=== PATIENT | male | born 1960 | race Caucasian/White ===

== ENCOUNTER → 2016-10-08 | Outpatient (CLI) | payer OTHER ==
[2016-10-08 17:05] LABS: URINE APPEARANCE CLEAR (CLEAR); URINE COLOR DK YELLOW; URINE EPITHELIAL CELL AUTO 20-30 /lpf (0-5); URINE NITRITE NEG (NEG); URINE SPECIFIC GRAVITY 1.021 (1.000-1.030); UROBILINOGEN POS (NEG)
[2016-10-08 17:06] LABS: MANUAL MICROSCOPIC REQUIRED? NO; REVIEW REQ? NO
[2016-10-08 17:07] LABS: URINE BILIRUBIN NEG (NEG)
[2016-10-08 17:10] LABS: HEMATOCRIT 46.3 % (42-52); MEAN CELL VOLUME 90.8 fL (80-100); MEAN CORPUSCULAR HEMOGLOBIN 31.6 pg (25-34); MEAN CORPUSCULAR HGB CONC 34.8 g/dl (32-36); WHITE BLOOD COUNT 2.83 K/uL (4.8-10.8)
[2016-10-08 17:25] LABS: ALT/SGPT 124 U/L (12-78); AST/SGOT 101 U/L (15-37); BLOOD UREA NITROGEN 18 mg/dl (7-18); BUN/CREATININE RATIO 17.8 (10-20); CALCIUM 9.2 mg/dl (8.5-10.1); CARBON DIOXIDE 30 mmol/L (21-32); CHLORIDE 103 mmol/L (98-107); GLUCOSE 117 mg/dl (70-99); SODIUM 138 mmol/L (136-145)
[2016-10-08 17:27] LABS: ALKALINE PHOSPHATASE 340 U/L (45-117)
[2016-10-08 17:34] LABS: BASO % 3.9 %; BASO ABS # 0.11 K/uL (0-0.2); COMPLETE YES; EOS % 0.4 %; IG% 0.4 %; LYMPH % 32.9 %; LYMPH ABS # 0.93 K/uL (1.2-3.4); MEAN PLATELET VOLUME 11.6 fL (7.4-10.4); MONO % 16.3 %; NEUT % 46.1 %; PLATELET COUNT 51 K/uL (130-400); PLT ESTIMATE DECREASED
[2016-10-08 17:36] LABS: LYME DISEASE AB IGG NEG (NEG); LYME DISEASE AB IGM NEG (NEG)
== END | disposition home or self-care (01) ==
LOC: C.LABBC 13:52
DX: R50.9 Fever, unspecified (principal)

== ENCOUNTER → 2016-10-10 | Outpatient (CLI) | payer OTHER ==
[2016-10-10 10:41] LABS: HEMATOCRIT 42.1 % (42-52); MEAN CELL VOLUME 92.5 fL (80-100); MEAN CORPUSCULAR HEMOGLOBIN 31.6 pg (25-34); MEAN CORPUSCULAR HGB CONC 34.2 g/dl (32-36); MEAN PLATELET VOLUME 10.5 fL (7.4-10.4); PLATELET COUNT 91 K/uL (130-400); RED BLOOD COUNT 4.55 M/uL (4.7-6.1)
[2016-10-10 11:23] LABS: ALB/GLOB RATIO 1.1 (0.9-2); ALKALINE PHOSPHATASE 295 U/L (45-117); ALT/SGPT 315 U/L (12-78); AST/SGOT 259 U/L (15-37); BLOOD UREA NITROGEN 26 mg/dl (7-18); BUN/CREATININE RATIO 27.5 (10-20); CALCIUM 8.3 mg/dl (8.5-10.1); CARBON DIOXIDE 30 mmol/L (21-32); CHLORIDE 107 mmol/L (98-107); CREATININE 0.96 mg/dl (0.60-1.40); GLUCOSE 94 mg/dl (70-99); POTASSIUM 4.4 mmol/L (3.5-5.1); SODIUM 142 mmol/L (136-145)
[2016-10-10 11:24] LABS: BASO % 1.1 %; BASO ABS # 0.06 K/uL (0-0.2); COMPLETE YES; EOS % 2.6 %; IG% 0.4 %; LYMPH % 52.3 %; LYMPH ABS # 2.77 K/uL (1.2-3.4); MONO % 11.3 %; NEUT % 32.3 %
== END | disposition home or self-care (01) ==
LOC: C.LAB 09:35
DX: R50.9 Fever, unspecified (principal)

== ENCOUNTER → 2016-10-12 | Outpatient (CLI) | payer OTHER ==
[2016-10-12 09:36] LABS: BASO % 0.3 %; BASO ABS # 0.02 K/uL (0-0.2); COMPLETE YES; HEMATOCRIT 41.8 % (42-52); IG% 1.3 %; LYMPH % 40.5 %; LYMPH ABS # 2.42 K/uL (1.2-3.4); MEAN CELL VOLUME 92.7 fL (80-100); MEAN CORPUSCULAR HEMOGLOBIN 30.4 pg (25-34); MEAN CORPUSCULAR HGB CONC 32.8 g/dl (32-36); MEAN PLATELET VOLUME 9.7 fL (7.4-10.4); MONO % 9.9 %; PLATELET COUNT 169 K/uL (130-400); RED BLOOD COUNT 4.51 M/uL (4.7-6.1); WHITE BLOOD COUNT 5.97 K/uL (4.8-10.8)
[2016-10-12 09:52] LABS: ALT/SGPT 389 U/L (12-78); AST/SGOT 233 U/L (15-37); BLOOD UREA NITROGEN 18 mg/dl (7-18); BUN/CREATININE RATIO 20.1 (10-20); CALCIUM 8.5 mg/dl (8.5-10.1); CARBON DIOXIDE 29 mmol/L (21-32); CHLORIDE 109 mmol/L (98-107); CREATININE 0.91 mg/dl (0.60-1.40); GLUCOSE 95 mg/dl (70-99); POTASSIUM 4.3 mmol/L (3.5-5.1); SODIUM 143 mmol/L (136-145)
[2016-10-12 09:55] LABS: ALB/GLOB RATIO 1.1 (0.9-2); ALKALINE PHOSPHATASE 225 U/L (45-117)
== END | disposition home or self-care (01) ==
LOC: C.LAB 08:10
DX: R50.9 Fever, unspecified (principal); R94.5 Abnormal results of liver function studies

== ENCOUNTER → 2016-10-15 | Outpatient (CLI) | payer OTHER ==
[2016-10-15 09:45] LABS: ALT/SGPT 264 U/L (12-78); AST/SGOT 67 U/L (15-37)
== END | disposition home or self-care (01) ==
LOC: C.LAB 07:56
DX: R50.9 Fever, unspecified (principal); R94.5 Abnormal results of liver function studies; R79.89 Other specified abnormal findings of blood chemistry

== ENCOUNTER → 2016-10-30 | Outpatient (CLI) | payer OTHER ==
[2016-10-30 09:38] LABS: BASO % 0.6 %; BASO ABS # 0.03 K/uL (0-0.2); COMPLETE YES; EOS % 2.6 %; HEMATOCRIT 43.9 % (42-52); IG% 0.4 %; LYMPH % 36.9 %; LYMPH ABS # 1.95 K/uL (1.2-3.4); MEAN CELL VOLUME 93.6 fL (80-100); MEAN CORPUSCULAR HGB CONC 34.2 g/dl (32-36); MEAN PLATELET VOLUME 10.3 fL (7.4-10.4); MONO % 13.2 %; NEUT % 46.3 %; PLATELET COUNT 190 K/uL (130-400); RED BLOOD COUNT 4.69 M/uL (4.7-6.1); WHITE BLOOD COUNT 5.29 K/uL (4.8-10.8)
[2016-10-30 09:54] LABS: ALT/SGPT 50 U/L (12-78); BLOOD UREA NITROGEN 16 mg/dl (7-18); BUN/CREATININE RATIO 14.2 (10-20); CARBON DIOXIDE 28 mmol/L (21-32); CHLORIDE 106 mmol/L (98-107); GLUCOSE 96 mg/dl (70-99); POTASSIUM 4.3 mmol/L (3.5-5.1); SODIUM 141 mmol/L (136-145)
[2016-10-30 09:58] LABS: ALKALINE PHOSPHATASE 94 U/L (45-117); AST/SGOT 24 U/L (15-37); CALCIUM 9.5 mg/dl (8.5-10.1)
[2016-11-01 09:06] LABS: 18KDIGG BAND NONREACTIVE (NONREACTIVE); 23KDIGG BAND NONREACTIVE (NONREACTIVE); 23KDIGM BAND REACTIVE (NONREACTIVE); 28KDIGG BAND NONREACTIVE (NONREACTIVE); 30KDIGG BAND REACTIVE (NONREACTIVE); 39KDIGG BAND NONREACTIVE (NONREACTIVE); 39KDIGM BAND NONREACTIVE (NONREACTIVE); 41KDIGG BAND REACTIVE (NONREACTIVE); 41KDIGM BAND REACTIVE (NONREACTIVE); 45KDIGG BAND NONREACTIVE (NONREACTIVE); 58KDIGG BAND NONREACTIVE (NONREACTIVE); 66KDIGG BAND NONREACTIVE (NONREACTIVE); 93KDIGG BAND NONREACTIVE (NONREACTIVE)
== END | disposition home or self-care (01) ==
LOC: C.LAB 08:13
PROVIDERS: ATTEND Family Medicine
DX: A69.20 Lyme disease, unspecified (principal)

== ENCOUNTER → 2017-02-07 | Outpatient (CLI) | payer OTHER ==
[2017-02-07 08:31] LABS: BASO % 0.5 %; BASO ABS # 0.03 K/uL (0-0.2); COMPLETE YES; EOS % 3.5 %; HEMATOCRIT 45.9 % (42-52); IG% 0.2 %; LYMPH ABS # 1.44 K/uL (1.2-3.4); MEAN CORPUSCULAR HEMOGLOBIN 32.1 pg (25-34); MEAN CORPUSCULAR HGB CONC 34.9 g/dl (32-36); MEAN PLATELET VOLUME 10.2 fL (7.4-10.4); MONO % 8.5 %; NEUT % 65.3 %; PLATELET COUNT 216 K/uL (130-400); RED BLOOD COUNT 4.99 M/uL (4.7-6.1); WHITE BLOOD COUNT 6.56 K/uL (4.8-10.8)
[2017-02-07 08:51] LABS: ALT/SGPT 36 U/L (12-78); BLOOD UREA NITROGEN 19 mg/dl (7-18); BUN/CREATININE RATIO 19.7 (10-20); CALCIUM 9.5 mg/dl (8.5-10.1); CARBON DIOXIDE 28 mmol/L (21-32); CHLORIDE 107 mmol/L (98-107); CREATININE 0.97 mg/dl (0.60-1.40); GLUCOSE 133 mg/dl (70-99); SODIUM 140 mmol/L (136-145)
[2017-02-07 08:54] LABS: ALB/GLOB RATIO 1.1 (0.9-2); ALKALINE PHOSPHATASE 84 U/L (45-117); AST/SGOT 20 U/L (15-37)
[2017-02-07 08:56] LABS: PFT COL EPI 125 SECONDS (80-184)
[2017-02-07 09:12] LABS: PARTIAL THROMBOPLASTIN RATIO 1.1; PROTHROMBIN TIME (PATIENT) 10.2 SECONDS (9.0-12.0)
== END | disposition home or self-care (01) ==
LOC: C.LAB 08:08
PROVIDERS: ATTEND Family Medicine
DX: R23.3 Spontaneous ecchymoses (principal)

== ENCOUNTER → 2017-06-10 | Outpatient (CLI) | payer OTHER ==
--- NOTE | 2017-06-10 13:55 | EXERCISE STRESS ECHO ---
*NOTICE TO RECEIVING DEMOCRAT AGENCY This information is strictly Confidential and protected under [place] law. [place] law prohibits you from making any further disclosure of this information unless further disclosure is expressly permitted by the written consent of the person to whom it pertains or is authorized by law. A general authorization for the release of medical or other information is not sufficient for this purpose. Hospital accepts no responsibility if the information is made available to any other person, INCLUDING THE PATIENT. Interpretation Summary * Name: DEBORAH ACHARYA Study Date: 06/10/2017 09:24 AM BP: 146/95 mmHg * Patient Location: [facility] HR: 81 * : 1960 (M/d/yyyy) Gender: Male Height: 70 in * Age: 56 yrs Ethnicity: CA Weight: 220 lb * Ordering Physician: Fabian Milton * Referring Physician: Fabian Milton D.O. * Performed By: Janice Marrero RCS * * Reason For Study: Chest Pain * BSA: 2.2 m2 * The exercise echocardiographic examination is normal without resting left ventricular wall motion abnormalities or inducible ischemia. * Exercise capacity is above average. * -- Conclusions -- * The patient exhibited a hypertensive response with stress. * The stress ECG response was normal * Resting wall motion: Normal. Stress wall motion: Appropriate increase in Left ventricular systolic function and decrease in cavity size. No stress induced segmental wall motion abnormalities. * There is borderline concentric left ventricular hypertrophy. * Ejection Fraction = 60-65%. * The mitral valve leaflets are mildly thickened with mild prolapse of the posterior mitral valvel lealflet. * There is mild mitral regurgitation. * Trace aortic regurgitation. Procedure Details * ECHOEX, CPT #[id number] * ECHO COLOR FLOW, CPT #[id number] * ECHO DOPPLER, CPT #[id number] Left Ventricle * The left ventricle is normal in size. * There is borderline concentric left ventricular hypertrophy. * Ejection Fraction = 60-65%. * Left ventricular systolic function is normal. * The left ventricular wall motion is normal at rest. * The left ventricular ejection fraction increases normally with stress. The left ventricular end-systolic cavity size reduces post-stress (normal response). The left ventricular wall motion with stress is normal. * Resting wall motion: Normal. Stress wall motion: Appropriate increase in Left ventricular systolic function and decrease in cavity size. No stress induced segmental wall motion abnormalities. Right Ventricle * The right ventricle is normal in size and function. Atria * The left atrial size is normal. * Right atrial size is normal. * No ASD detected; PFO is not assessed. Mitral Valve * The mitral valve leaflets are mildly thickened with mild prolapse of the posterior mitral valvel lealflet. * There is no mitral valve stenosis. * The mitral regurgitant jet is anteriorly directed, which is consistent with posterior leaflet pathology. * There is mild mitral regurgitation. Tricuspid Valve * The tricuspid valve is normal. * There is no tricuspid stenosis. * Significant tricuspid regurgitation is absent. Aortic Valve * The aortic valve is trileaflet. * Aortic stenosis is absent. * Trace aortic regurgitation. Pulmonic Valve * The pulmonary valve is not well seen, but the Doppler examination is normal without significant regurgitation or stenosis. Great Vessels * The aortic root and proximal ascending aorta are normal sized. Pericardium * There is no pericardial effusion. Stress Parameters * Normal baseline electrocardiogram. * The stress ECG response was normal * The stress portion of this study was personally supervised by the undersigned interpreting physician. * Rest heart rate was '81' BPM. * Rest blood pressure was '146/95' * Maximum heart rate achieved was 181 bpm. * Maximum heart rate was 110 % of maximum age-predicted heart rate. * Maximum blood pressure was '202/83' * Total exercise time was '8:59' * Maximum exercise MET level achieved was '10.4' METS * Maximum treadmill speed was '3.4' miles per hour. * Maximum treadmill elevation was '14'% grade. * Exercise was terminated due to 'achieving target heart rate' * The patient exhibited a hypertensive response with stress. MMode 2D Measurements and Calculations IVSd 1.0 cm IVSs 1.4 cm LVIDd 4.5 cm LVIDs 3.0 cm LVPWd 1.0 cm LVPWs 1.2 cm IVS/LVPW 1.0 FS 33.5 % EDV(Teich) 91.2 ml ESV(Teich) 34.4 ml EF(Teich) 62.3 % EDV(cubed) 89.6 ml ESV(cubed) 26.4 ml EF(cubed) 70.5 % % IVS thick 32.1 % % LVPW thick 15.7 % LV mass(C)d 158.0 grams LV mass(C)dI 72.7 grams/m\S\2 LV mass(C)s 119.1 grams LV mass(C)sI 54.8 grams/m\S\2 SV(Teich) 56.8 ml SI(Teich) 26.2 ml/m\S\2 SV(cubed) 63.2 ml SI(cubed) 29.1 ml/m\S\2 Ao root diam 4.1 cm Ao root area 13.0 cm\S\2 ACS 1.9 cm LA dimension 4.7 cm asc Aorta Diam 3.6 cm LA/Ao 1.1 EDV(MOD-sp4) 95.0 ml ESV(MOD-sp4) 33.0 ml EF(MOD-sp4) 65.3 % LVAd ap2 35.7 cm\S\2 LVLd ap2 8.9 cm EDV(MOD-sp2) 117.9 ml EDV(sp2-el) 121.4 ml LVAs ap2 18.3 cm\S\2 LVLs ap2 7.3 cm ESV(MOD-sp2) 40.2 ml ESV(sp2-el) 39.1 ml EF(MOD-sp2) 65.9 % EF(sp2-el) 67.8 % SV(MOD-sp4) 62.0 ml SI(MOD-sp4) 28.5 ml/m\S\2 SV(MOD-sp2) 77.8 ml SI(MOD-sp2) 35.8 ml/m\S\2 SV(sp2-el) 82.3 ml SI(sp2-el) 37.9 ml/m\S\2 Doppler Measurements and Calculations MV E max kira 88.4 cm/sec MV A max kira 58.2 cm/sec MV E/A 1.5 MV P1/2t max kira 91.6 cm/sec MV P1/2t 69.9 msec MVA(P1/2t) 3.1 cm\S\2 MV dec slope 383.7 cm/sec\S\2 MV dec time 0.21 sec Ao V2 max 101.2 cm/sec Ao max PG 4.1 mmHg Ao max PG (full) 1.2 mmHg AI max kira 440.9 cm/sec AI max PG 77.8 mmHg AI dec slope 218.3 cm/sec\S\2 AI P1/2t 591.8 msec LV V1 max PG 2.9 mmHg LV V1 max 84.5 cm/sec PA V2 max 81.1 cm/sec PA max PG 2.6 mmHg PI max kira 177.7 cm/sec PI max PG 12.6 mmHg PI dec slope 295.1 cm/sec\S\2 PI P1/2t 176.4 msec TR max kira 229.5 cm/sec
== END | disposition home or self-care (01) ==
LOC: C.CPL 09:42
PROVIDERS: ATTEND Specialist
DX: R07.9 Chest pain, unspecified (principal); Z86.73 Personal history of transient ischemic attack (TIA), and cerebral infarction without residual deficits

== ENCOUNTER → 2017-07-30 | Outpatient (CLI) | payer OTHER ==
[2017-07-30 09:59] LABS: ALBUMIN 3.9 gm/dl (3.4-5.0); ALKALINE PHOSPHATASE 79 U/L (45-117); AST/SGOT 15 U/L (15-37); BLOOD UREA NITROGEN 18 mg/dl (7-18); CALCIUM 9.1 mg/dl (8.5-10.1); CARBON DIOXIDE 26 mmol/L (21-32); CREATININE 0.96 mg/dl (0.60-1.40); GLUCOSE 105 mg/dl (70-99); POTASSIUM 3.7 mmol/L (3.5-5.1); SODIUM 138 mmol/L (136-145); TOTAL PROTEIN 7.2 gm/dl (6.4-8.2)
[2017-07-30 10:00] LABS: ALT/SGPT 34 U/L (12-78)
== END | disposition home or self-care (01) ==
LOC: C.LAB 07:18
PROVIDERS: ATTEND Specialist
DX: I05.9 Rheumatic mitral valve disease, unspecified (principal); Z86.73 Personal history of transient ischemic attack (TIA), and cerebral infarction without residual deficits

== ENCOUNTER → 2017-08-09 | Day surgery (SDC) | payer OTHER ==
[~2017-08-09] VITALS: Ht 177.8 cm; Wt 100.0 kg
[2017-08-09] VITALS (11 sets, daily range): BP systolic 94–128; BP diastolic 61–84; PULSE 62–65; TEMP 36.3; O2SAT 96–98; Ht 177.8 cm; Wt 100.0 kg
[~2017-08-09] MED LIST: ASPI81TA25 PO; LIDOCAINE HCL 2% 2 ML VIAL (20MG/ML) ONE; MIDAZOLAM HCL 1 MG/ML 2ML VIAL ONE; PROPOFOL IV EMULSION 10 MG/ML 20 ML VIAL IV ONE
--- NOTE | 2017-08-09 07:15 | History & Physical Bridge Note ---
H&P Re-Evaluation Bridge Note: I have examined the patient, reviewed the History & Physical and in the interval since the performance of the History & Physical I have noted the following changes of clinical significance: No changes noted
--- NOTE | 2017-08-09 08:57 | Cardiology Procedure Brief Nt ---
Preliminary Cardiology Note Procedure Date Aug 09, 2017. 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 Recommendations Continue aspirin 81 mg daily. Continue follow up with yearly TTecho studies or closer if there is development of symptoms related to MR. Specimens none Anesthesia Administered by anesthesia, Versed 2 mg IV, Propofol 100 mg IV Complication(s) None Disposition Recovery in post slab inspector recovery area , then DC to home
--- NOTE | 2017-08-09 09:05 | Discharge Instructions ---
Discharge Instructions Procedure Procedure Date: Aug 09, 2017. Reason for Visit: Atypical Chest Pain *Dr Milton Doing* Anesthesia. Discharge Discharge Date: Aug 09, 2017. Discharge Diagnosis: Mild mitral valve prolapse, mild mitral regurgitation Last Recorded Wt (Kilograms): 100 Anesthesia Post Anesthesia Instructions: If you have had General Anesthesia or IV Sedation: * Do not drive today. * Resume driving when surgeon permits. * Do not make important decisions or sign legal documents today. * Call surgeon for: 1. Temperature elevations greater than 101 degrees F. 2. Uncontrollable pain. 3. Excessive bleeding. 4. Persistent nausea and vomiting. 5. Medication intolerance (nausea, vomiting or rash). * For nausea and vomiting use only clear liquids such as: tea, soda, bouillon until nausea subsides, then gradually increase diet as tolerated. * If you have any concerns or questions, call your surgeon's office. If physician is unavailable and it is an emergency, call 911 or go to the nearest emergency room. Instructions Activity Recommendations: limitations as noted below Recommended Home Diet: resume previous diet Allergies: Coded Allergies: No Known Allergies (Verified , 03/05/16) Provider Instructions ACTIVITY RECOMMENDATIONS: Resume activities as tolerated with no limitations unless specified. _x_ No lifting over 10__ pounds for 24 hours. _x_ Do not engage in vigorous exercise, sexual activity, or sports for 24 hours. _x_ Do not drive or operate any motorized equipment for 24 hours. _x_ You may return to work/school tomorrow. _x_ Nothing to eat or drink until gag reflex returns. _x_ No HOT or WARM liquids for _24_ hours. _x_ Avoid "scratchy" foods such as potato chips or pretzels for 24 hours following procedure. SPECIAL CARE: If you experience coughing up or vomiting of blood, contact _Dr Milton __ Follow Up Annabel Venegas Recommendations: Call your doctor if: * Temperature above 101 degrees * Pain not relieved by pain medicine ordered * There is increased drainage or redness from any incision * You have any unanswered questions or concerns. Your Doctors Instructions noted above were prepared by provider Fabian Milton. Patient Signature Section: Patient Instructions Signature Page Mario Nails Patient (or Guardian) Signature/Date: I have read and understand the instructions given to me by my caregivers. Caregiver/RN/Doctor Signature/Date: The above-named patient and/or guardian has received patient instructions on this date. + Original Patient Signature Page (only) stays with chart. Please make copy for patient.
--- NOTE | 2017-08-09 09:36 | Anesthesiology Progress Note ---
Anesthesia Post Op Note Date & Time Aug 09, 2017 at 09:36 Vital Signs Pain Intensity: 0 Vital Signs Past 12 Hours Date Time Temp Pulse Resp B/P (MAP) Pulse Ox O2 Delivery O2 Flow Rate FiO2 08/09/17 09:30 65 16 123/75 (91) 96 Room Air 08/09/17 09:15 64 16 120/72 (88) 98 Room Air 08/09/17 09:00 63 16 118/68 (85) 98 Room Air 08/09/17 08:45 64 16 122/68 (86) 98 Room Air 08/09/17 08:30 65 16 124/70 (88) 98 Room Air 08/09/17 08:27 62 16 113/78 (90) 98 Room Air 08/09/17 08:17 64 16 122/64 (83) 98 Room Air 08/09/17 08:07 16 107/65 98 Nasal Cannula 4 08/09/17 08:05 16 107/65 98 Nasal Cannula 4 08/09/17 08:00 16 109/73 98 Nasal Cannula 4 08/09/17 07:55 16 109/61 98 Nasal Cannula 4 08/09/17 07:50 16 104/64 98 Nasal Cannula 4 08/09/17 07:45 16 94/66 96 Nasal Cannula 4 08/09/17 07:40 16 128/84 96 Nasal Cannula 4 08/09/17 07:38 16 128/84 96 Nasal Cannula 4 08/09/17 06:54 36.3 62 16 122/72 (89) 96 Room Air Notes Mental Status: alert / awake / arousable, participated in evaluation Pt Amnestic to Procedure: Yes Nausea / Vomiting: adequately controlled Pain: adequately controlled Airway Patency, RR, SpO2: stable & adequate BP & HR: stable & adequate Hydration State: stable & adequate Anesthetic Complications: no major complications apparent
--- NOTE | 2017-08-09 18:51 | TEE ---
*NOTICE TO RECEIVING DEMOCRAT AGENCY This information is strictly Confidential and protected under [place] law. [place] law prohibits you from making any further disclosure of this information unless further disclosure is expressly permitted by the written consent of the person to whom it pertains or is authorized by law. A general authorization for the release of medical or other information is not sufficient for this purpose. Hospital accepts no responsibility if the information is made available to any other person, INCLUDING THE PATIENT. Interpretation Summary * Name: DEBORAH ACHARYA Study Date: 08/09/2017 07:19 AM BP: 122/72 mmHg * Patient Location: [facility] HR: 77 * : 1960 (M/d/yyyy) Gender: Male Height: 70 in * Age: 56 yrs Ethnicity: [place] Weight: 220 lb * Ordering Physician: Fabian Milton DO, FACC * Referring Physician: Fabian Milton DO, FACC * Performed By: Rachel Cain RDCS * * Reason For Study: Atypical chest pain * BSA: 2.2 m2 * -- Conclusions -- * The study was of technically good quality and was adequate for the referring indication. * There is a mobile, linear echodensity on the left atrial aspect of the mitral valve with appearance consistent with a ruptured chord from the sub-mitral valve apparatus of the posterior mitral valve leaflet. * There is mild resultant prolapse of the P2 segment of the posterior mitral valve. * There is mild mitral regurgitation. * The mitral regurgitant jet is anteriorly directed, which is consistent with posterior leaflet pathology. * Trace aortic valve regurgitation is present. * The LV ejection fraction=60-65% Procedure Details * The transesophageal portion of this study was personally supervised by the undersigned interpreting physician. * The study was performed in Cardiac Catheterization Lab. * Time out was conducted by the physician, nurse, and senior laboratory technician with positive identification of patient and procedure. * Informed consent for Transesophageal Echocardiogram was obtained prior to the procedure. * An intravenous line was placed. A topical anesthetic agent was used for oropharangeal anesthesia. A bite block was inserted. * Sedation performed by the anesthesia department. * The patient's vital signs, including blood pressure, heart rate, pulse oximetry and cardiac rhythm were monitored throughout the procedure . * Midazolam 2 mg administered for sedation. * The posterior oropharynx was anesthetized using a topical anesthetic spray. A bite guard was inserted. * A multifrequency, multiplane transesopheageal echocardiographic endoscope was inserted and manipulated in the standard fashion to achieve multiplane views. * The transesophageal probe was passed without difficulty. * The usual views were obtained; basal, mid-esophageal, transgastric and aortic views. * The patient tolerated the procedure well without evidence of orophangeal or esophageal trauma. * Contrast injection with agitated saline was performed. * Start time 0738 End time 0803 Probe #3 utilized for procedure. 100 mg Propofol 40 mg Lidocaine Left Ventricle * The left ventricle is normal in size. * There is normal left ventricular wall thickness. * Left ventricular systolic function is normal. * Ejection Fraction = 60-65%. * The left ventricular wall motion is normal. Right Ventricle * The right ventricle is normal in size and function. Atria * The left atrial size is normal. * No left atrial mass or thrombus visualized. * No thrombus is detected in the left atrial appendage. * Right atrial size is normal. * The interatrial septum is intact with no evidence for an atrial septal defect. Mitral Valve * There is a mobile, linear echodensity on the left atrial aspect of the mitral valve with appearance consistent with a ruptured chord from the sub-mitral valve apparatus of the posterior mitral valve leaflet. There is mild resultant prolapse of the P2 segment of the posterior mitral valve. * There is no mitral valve stenosis. * There is mild mitral regurgitation. * The mitral regurgitant jet is anteriorly directed, which is consistent with posterior leaflet pathology. Tricuspid Valve * The tricuspid valve is normal. * There is no tricuspid stenosis. * There is trace tricuspid regurgitation. * Doppler findings do not suggest pulmonary hypertension. Aortic Valve * The aortic valve is trileaflet. * No hemodynamically significant valvular aortic stenosis. * Trace aortic regurgitation. Pulmonic Valve * The pulmonic valve is not well seen, but is grossly normal. Great Vessels * There is no significant atheromatous disease visualized in the aortic root, proximal ascending aorta, aortic arch or proximal descending thoracic aorta. The aortic root was borderline dilated with diameter 3.8 cm. Pericardium * There is no pericardial effusion. MMode 2D Measurements and Calculations Ao root diam 3.8 cm Ao root area 11.3 cm\S\2
== END | disposition home or self-care (01) ==
LOC: C.CATH 06:38
PROVIDERS: ATTEND Specialist
DX: I51.1 Rupture of chordae tendineae, not elsewhere classified (principal); I34.0 Nonrheumatic mitral (valve) insufficiency; I10 Essential (primary) hypertension; Z86.73 Personal history of transient ischemic attack (TIA), and cerebral infarction without residual deficits; Z79.899 Other long term (current) drug therapy; Z79.82 Long term (current) use of aspirin

== ENCOUNTER 2021-03-18 22:41 | Inpatient (IN) ==
[2021-03-18] MEDS ORDERED: SODIUM CHLORIDE 0.9% 1000ML 500 ML IV ONE (23:02)
[2021-03-18] MEDS ORDERED: METOPROLOL TARTRATE 1 MG/ML VIAL IV STA ×2 (23:02→23:31)
--- NOTE | 2021-03-18 23:10 | Emergency Department Note ---
Impression & Plan SVT (supraventricular tachycardia), Palpitations, Atrial fibrillation, Chest pressure ED Provider Note NAME: DEBORAH ACHARYA AGE: 60 SEX: M : 1960 ARRIVES VIA: Walk-In INFORMANT: [Patient] ED PROVIDER(S): [Jose Daniel Almodovar MD] CHIEF COMPLAINT: Palpitations HISTORY OF PRESENT ILLNESS: The patient is a 60-year-old male with a history of SVT with ablation. He was told that he was having some extra beats and may be even some trigeminy for the last couple of weeks. He was told to come to the hospital if he ever developed a faster heart rate. In the last 4 hours, the patient has noticed his heart racing at times. He has had some mild pressure in his chest. No real shortness of breath. If he bears down, the heart rate seems to decrease and break to a slower rhythm. The patient was outside today doing some mild work, no difficulty with chest pain or shortness of breath while working. He has had no cough, cold or congestion. He has been in baseline health. He took a Xanax before coming in thinking this may help relieve his symptoms. He is currently on no rate limiting medications. No prior diagnosis of A. fib or a flutter. REVIEW OF SYSTEMS: See HPI for pertinent positives and negatives. A total of ten systems were reviewed and were otherwise negative. PMHx/PSHx: See Below SOCIAL HISTORY: See Below. PHYSICAL EXAM: GENERAL: Patient is in no acute distress. HEENT: No acute trauma, normocephalic atraumatic, mucous membranes moist, no nasal congestion, no scleral icterus. NECK: No stridor, no adenopathy, no meningismus, trachea is midline. LUNGS: Clear to auscultation bilaterally, no wheeze, no rhonchi, breath sounds equal. HEART: No murmurs, irregular rhythm, mildly tachycardic. ABDOMEN: Soft, nontender, bowel sounds positive, no hernias, no peritonitis. EXTREMITIES: No cyanosis or edema, full range of motion of all the joints without pain or difficulty, no signs for acute trauma. NEUROLOGIC: Oriented x 3, no acute motor or sensory deficits, no focal weakness. SKIN: No rash, no jaundice, no diaphoresis. DIFFERENTIAL DIAGNOSIS: Cardiac ischemia, aortic dissection, pulmonary embolism, SVT, atrial fibrillation, a flutter, V. tach, pneumothorax, pneumonia, pericarditis, myocarditis, esophageal rupture, GERD, cholecystitis, pancreatitis, musculoskeletal, as well as other pathologies. EMERGENCY DEPARTMENT COURSE/PROCEDURES: ECG: Indication was palpitations. The ECG shows what appears to be atrial fibrillation with some occasional sinus beats. He appears to have runs of atrial fibrillation. The rate is 101. The QTc is 453. There is some nonsp ecific ST change. No ST elevation. PVCs. Compared to an ECG from 18 November 2015, A. fib is now present. Repeat EKG: Indication was tachycardia. The ECG shows an SVT with a rate of 165. There is some diffuse nonspecific ST change. No ST elevation, no PVCs. QTC is 463. Compared to the earlier ECG from today, the SVT is now present. Continuous Cardiac Monitoring: An order was placed for continuous cardiac monitoring. The monitor shows a rate of 115 with atrial fibrillation. Critical Care Note: I have personally spent 55 minutes of critical care time in the direct management of this patient. This includes bedside care, interpretation of diagnostic studies, and testing, discussion with consultants, patient, and family members, and other required patient management activities. This 55 minutes is in excess of all separately billable procedures. MEDICAL DECISION MAKING: There is no leukocytosis or concerning anemia. There is a normal platelet count. No coagulopathy. No significant electrolyte abnormality or kidney failure. No concerning liver enzyme elevation. The patient appeared to be in a euthyroid state. ECG initially showed some intermittent atrial fibrillation. A second EKG showed an SVT. At times on the bus monitor, he was in a sinus rhythm with frequent PACs. Covid testing is currently pending. Chest film did not show pneumonia or CHF. The patient was given IV saline, 1 L. He received a total of 15 mg of IV Lopressor. He was given 25 mg of oral Lopressor. He was eventually placed on a heparin drip. I did speak with cardiology. They did recommend a heparin drip and beta- blockade. The patient is being hospitalized. I spoke with the patient, I talked to case management. The on-call hospitalist was consulted. I was called by the nursing staff because of the rapid heart rate. The patient was in SVT. His blood pressure was low and he was slightly sweaty. He was able to break the SVT on his own by just bearing down. Once the SVT resolved, his blood pressure improved. Past Med/Surg History Medical History Supraventricular tachycardia Social History Smoking Status: Never smoker Preferred Language: Hong Konger Feels Safe at Home: Yes Allergies Allergies Allergy/AdvReac Type Severity Reaction Status Date / Time No Known Allergies Allergy Unknown Verified 03/19/21 00:21 Home Meds Home Medications Medication Instructions Recorded Confirmed alprazolam 0.5 mg tablet 0.5 mg PO DAILY PRN 03/19/21 03/19/21 Results & Data (ED) Vital Signs Vital Signs - 24 hr 03/18/21 22:42 03/18/21 23:05 03/18/21 23:06 Temperature 36.6 C Temperature Source Temporal Artery Scan Pulse Rate 100 H Pulse Rate [Apical] Pulse Rate from SpO2 Sensor Respiratory Rate 20 Blood Pressure 138/82 Blood Pressure [Left Arm] Blood Pressure Mean 100 Blood Pressure Mean [Left Arm] Blood Pressure Position Sitting Pulse Oximetry 97 98 Oxygen Delivery Method Room Air Room Air Room Air Sepsis Recent Fever Within 48 Hours No Sepsis New/Unexplained Change in Mental Status N/A Sepsis Action Taken by Nursing No Action Required 03/18/21 23:13 03/18/21 23:31 03/18/21 23:35 Temperature Temperature Source Pulse Rate 94 H 124 H Pulse Rate [Apical] 118 H Pulse Rate from SpO2 Sensor Respiratory Rate 18 Blood Pressure 130/76 126/78 Blood Pressure [Left Arm] 126/78 Blood Pressure Mean Blood Pressure Mean [Left Arm] 94 Blood Pressure Position Pulse Oximetry 98 Oxygen Delivery Method Sepsis Recent Fever Within 48 Hours Sepsis New/Unexplained Change in Mental Status Sepsis Action Taken by Nursing 03/19/21 00:01 03/19/21 00:30 03/19/21 00:38 Temperature Temperature Source Pulse Rate 95 H 105 H Pulse Rate [Apical] 178 H Pulse Rate from SpO2 Sensor 67 87 Respiratory Rate 17 15 Blood Pressure 142/75 H Blood Pressure [Left Arm] Blood Pressure Mean 97 Blood Pressure Mean [Left Arm] Blood Pressure Position Pulse Oximetry 96 97 Oxygen Delivery Method Sepsis Recent Fever Within 48 Hours Sepsis New/Unexplained Change in Mental Status Sepsis Action Taken by Nursing 03/19/21 00:44 03/19/21 00:53 Temperature Temperature Source Pulse Rate 98 H Pulse Rate [Apical] 88 Pulse Rate from SpO2 Sensor Respiratory Rate 16 Blood Pressure 129/75 Blood Pressure [Left Arm] 129/75 Blood Pressure Mean Blood Pressure Mean [Left Arm] 93 Blood Pressure Position Pulse Oximetry 98 Oxygen Delivery Method Room Air Sepsis Recent Fever Within 48 Hours Sepsis New/Unexplained Change in Mental Status Sepsis Action Taken by [facility] Medications Current Medication List: was personally reviewed by me Laboratory Data Attestation: I reviewed the patient's lab results. Result diagrams: 03/18/21 23:00 03/18/21 23:00 Lab Results 03/18/21 03/18/21 03/18/21 Range/Units 23:00 23:00 23:00 WBC 8.30 (4.8-10.8) K/uL RBC 4.65 L (4.7-6.1) M/uL Hgb 14.9 (14.0-18.0) g/dL Hct 43.6 (42-52) % MCV 93.8 (80-100) fL MCH 32.0 (25-34) pg MCHC 34.2 (32-36) g/dL RDW Std Deviation 46.3 (36.4-46.3) fL RDW Coeff of Martha 13.6 (11.5-14.5) % Plt Count 246 (130-400) K/uL MPV 10.2 (7.4-10.4) fL Immature Gran % (Auto) 0.2 % Neut % (Auto) 60.6 % Lymph % (Auto) 25.5 % [place] % (Auto) 9.2 % Eos % (Auto) 4.0 % Baso % (Auto) 0.5 % Neut # (Auto) 5.03 (1.4-6.5) K/uL Lymph # (Auto) 2.12 (1.2-3.4) K/uL [place] # (Auto) 0.76 H (0.11-0.59) K/uL Eos # (Auto) 0.33 (0-0.5) K/uL Baso # (Auto) 0.04 (0-0.2) K/uL Immature Gran # (Auto) 0.02 (0.00-0.02) K/uL PT 9.8 (9.0-12.0) Seconds INR 1.0 (0.9-1.1) APTT 26.8 (21.0-31.0) Seconds PTT Ratio 1.0 Sodium 143 (136-145) mmol/L Potassium 3.8 (3.5-5.1) mmol/L Chloride 110 H (98-107) mmol/L Carbon Dioxide 27 (21-32) mmol/L Anion Gap 6.0 (3-11) BUN 28 H (7-18) mg/dl Creatinine 1.20 (0.6-1.4) mg/dl Est Cr Clr Drug Dosing 79.2 ml/min Est GFR ( Amer) 75.7 ml/min Est GFR (Non-Af Amer) 65.3 ml/min BUN/Creatinine Ratio 22.9 H (10-20) Glucose 91 (70-99) mg/dl Calcium 9.0 (8.5-10.1) mg/dl Magnesium 2.0 (1.8-2.4) mg/dl Total Bilirubin 0.3 (0.2-1) mg/dl AST 20 (15-37) U/L ALT 30 (12-78) U/L Alkaline Phosphatase 96 (45-117) U/L Troponin I < 0.015 (0-0.045) ng/ml Total Protein 7.3 (6.4-8.2) gm/dl Albumin 3.6 (3.4-5.0) gm/dl Globulin 3.7 (2.5-4.0) gm/dl Albumin/Globulin Ratio 1.0 (0.9-2) TSH 3.280 (0.300-4.500) uIu/ml COVID-19 Eval Order 03/19/21 Range/Units 00:17 WBC (4.8-10.8) K/uL RBC (4.7-6.1) M/uL Hgb (14.0-18.0) g/dL Hct (42-52) % MCV (80-100) fL MCH (25-34) pg MCHC (32-36) g/dL RDW Std Deviation (36.4-46.3) fL RDW Coeff of Martha (11.5-14.5) % Plt Count (130-400) K/uL MPV (7.4-10.4) fL Immature Gran % (Auto) % Neut % (Auto) % Lymph % (Auto) % [place] % (Auto) % Eos % (Auto) % Baso % (Auto) % Neut # (Auto) (1.4-6.5) K/uL Lymph # (Auto) (1.2-3.4) K/uL [place] # (Auto) (0.11-0.59) K/uL Eos # (Auto) (0-0.5) K/uL Baso # (Auto) (0-0.2) K/uL Immature Gran # (Auto) (0.00-0.02) K/uL PT (9.0-12.0) Seconds INR (0.9-1.1) APTT (21.0-31.0) Seconds PTT Ratio Sodium (136-145) mmol/L Potassium (3.5-5.1) mmol/L Chloride (98-107) mmol/L Carbon Dioxide (21-32) mmol/L Anion Gap (3-11) BUN (7-18) mg/dl Creatinine (0.6-1.4) mg/dl Est Cr Clr Drug Dosing ml/min Est GFR ( Amer) ml/min Est GFR (Non-Af Amer) ml/min BUN/Creatinine Ratio (10-20) Glucose (70-99) mg/dl Calcium (8.5-10.1) mg/dl Magnesium (1.8-2.4) mg/dl Total Bilirubin (0.2-1) mg/dl AST (15-37) U/L ALT (12-78) U/L Alkaline Phosphatase (45-117) U/L Troponin I (0-0.045) ng/ml Total Protein (6.4-8.2) gm/dl Albumin (3.4-5.0) gm/dl Globulin (2.5-4.0) gm/dl Albumin/Globulin Ratio (0.9-2) TSH (0.300-4.500) uIu/ml COVID-19 Eval Order Covid19 at [facility] Administered Medications Discontinued Medications Sodium Chloride (Nss 1000ml) 500 mls @ 999 mls/hr IV .Q31M ONE Stop: 03/18/21 23:32 Last Admin: 03/18/21 23:14 Dose: 999 mls/hr Documented by: [id number] Sodium Chloride (Nss 1000ml) 500 mls @ 999 mls/hr IV .Q31M ONE Stop: 03/19/21 01:09 Last Admin: 03/19/21 00:42 Dose: 999 mls/hr Documented by: [id number] Metoprolol Tartrate (Metoprolol Tartrate 1 Mg/Ml Vial) 5 mg IV NOW STA Stop: 03/18/21 23:03 Last Admin: 03/18/21 23:13 Dose: 5 mg Documented by: [id number] Metoprolol Tartrate (Metoprolol Tartrate 1 Mg/Ml Vial) 5 mg IV NOW STA Stop: 03/18/21 23:32 Last Admin: 03/18/21 23:35 Dose: 5 mg Documented by: [id number] Metoprolol Tartrate (Metoprolol Tartrate 1 Mg/Ml Vial) 5 mg IV NOW STA Stop: 03/19/21 00:40 Last Admin: 03/19/21 00:53 Dose: 5 mg Documented by: [id number] Imaging Data Attestation: I personally reviewed and interpreted this imaging study as follows: My Impression: Chest x-ray: There is no pneumonia, mediastinal widening or pneumothorax. The chest film looks similar to previous films. Discharge Plan Visit Data Chief Complaint: Arrhythmia/Palpitations Stated Complaint: TACHYCARDIA ED Provider: Jose Daniel Almodovar Discharge Problem: SVT (supraventricular tachycardia), Palpitations, Atrial fibrillation, Chest pressure Patient Disposition: Admitted As Inpatient Condition: Fair Forms Stand Alone Forms: My [facility] Prescriptions Prescriptions: No Action alprazolam 0.5 mg tablet 0.5 mg PO DAILY PRN (Reason: Anxiety) RF: 0 Referrals Referrals: oK Rodriguez MD [Primary Care Provider] -
[2021-03-18 23:15] LABS: Basophils # (auto) 0.04 K/uL (0-0.2); Basophils % (auto) 0.5 %; Eosinophils # (auto) 0.33 K/uL (0-0.5); Hematocrit (blood only) 43.6 % (42-52); Hemoglobin 14.9 g/dL (14.0-18.0); Immature Granulocytes # (auto) 0.02 K/uL (0.00-0.02); Immature Granulocytes % (auto) 0.2 %; Lymphocytes # (auto) 2.12 K/uL (1.2-3.4); Lymphocytes % (auto) 25.5 %; Mean Corpuscular Hgb Conc 34.2 g/dL (32-36); Mean Corpuscular Volume 93.8 fL (80-100); Mean Platelet Volume 10.2 fL (7.4-10.4); Monocytes # (auto) 0.76 K/uL (0.11-0.59); Monocytes % (auto) 9.2 %; Neutrophils # (auto) 5.03 K/uL (1.4-6.5); Neutrophils % (auto) 60.6 %; Platelet Count 246 K/uL (130-400); RDW Coefficient of Variation 13.6 % (11.5-14.5); RDW Standard Deviation 46.3 fL (36.4-46.3); Red Blood Count 4.65 M/uL (4.7-6.1)
[2021-03-18 23:34] LABS: Alanine Aminotransferase 30 U/L (12-78); Albumin Level 3.6 gm/dl (3.4-5.0); Aspartate Aminotransferase 20 U/L (15-37); BUN Creatinine Ratio 22.9 (10-20); Blood Urea Nitrogen 28 mg/dl (7-18); Carbon Dioxide 27 mmol/L (21-32); Chloride 110 mmol/L (98-107); Creatinine Clr Calc Pharmacy 79.2 ml/min; Est GFR (African American) 75.7 ml/min; Est GFR (Non-African American) 65.3 ml/min; Glucose 91 mg/dl (70-99); Potassium 3.8 mmol/L (3.5-5.1); Sodium 143 mmol/L (136-145)
[2021-03-18 23:35] LABS: Partial Thromboplastin Time 26.8 Seconds (21.0-31.0); Prothrombin Time 9.8 Seconds (9.0-12.0)
[2021-03-18 23:45] LABS: Alkaline Phosphatase 96 U/L (45-117); Bilirubin,Total 0.3 mg/dl (0.2-1); Globulin 3.7 gm/dl (2.5-4.0); Total Protein 7.3 gm/dl (6.4-8.2); Troponin I < 0.015 ng/ml (0-0.045)
[2021-03-19] MEDS ORDERED: SODIUM CHLORIDE 0.9% 1000ML 500 ML IV ONE ×2 (00:39→01:47)
[2021-03-19] MEDS ORDERED: METOPROLOL TARTRATE 1 MG/ML VIAL IV STA (00:39)
[2021-03-19] MEDS ORDERED: Heparin IV Adult Wt-Based Low-Dose *NO* Bolus Protocol IV ONE (00:47)
[2021-03-19] MEDS ORDERED: METOPROLOL TARTRATE 50 MG TAB PO STA (00:47)
[2021-03-19] MEDS ORDERED: HEPARIN SODIUM/DEXTROSE 25,000 UNITS/500 ML BAG IV SCH (01:15)
[2021-03-19] MEDS ORDERED: POTASSIUM CHLORIDE CRTAB 20 MEQ TABCR PO STA ×2 (01:24→01:48)
[2021-03-19] MEDS ORDERED: METOPROLOL TARTRATE 1 MG/ML VIAL IV PRN (01:24)
--- NOTE | 2021-03-19 01:33 | History & Physical Report ---
Date of Service March 19, 2021 Assessment & Plan (1) SVT (supraventricular tachycardia): Plan: SVT/atrial fibrillation/chest pressure/palpitations- Status post cardiac ablation on 11/18/2015 The patient will be admitted to telemetry for serial cardiac enzymes, serial EKG's, cardiac rhythm monitoring and a 2-D echocardiogram with Dopplers. Patient received Lopressor 5 mg IV x4, normal saline total 1 L, Klor-Con 40 mEq p.o., and amiodarone 1 mg IV bolus followed by amiodarone drip He was also started on heparin drip, which will be continued Patient symptoms of recurrent PSVT while in the ED, occurred each time he was about to fall asleep. Consult his grip assembler Dr. Milton/covering grip assembler (2) Palpitations: Plan: See above (3) Atrial fibrillation: Plan: See above (4) Chest pressure: Plan: During episodes of SVT, patient experienced significant chest pressure, and sweats and fatigue (5) Anxiety: Plan: Xanax as needed as noted History of Present Illness Chief Complaint: The patient presents to the emergency department due to complaint of palpitations over the past few weeks, with significant increase in frequency of palpitations and heart rate today Primary Care Provider: Ko Rodriguez MD The patient is a 60-year-old male with a past medical history including SVT status post ablation, atrial fibrillation, and anxiety. He presents to the emergency department with complaint of palpitations over the past few weeks, with increased heart rate over the past 4 hours prior to arrival. While in the emergency department, he had several episodes of SVT into the 170s and 180s, that did briefly respond to Lopressor 5 mg IV x4, IV fluid resuscitation, and oral potassium replacement. With the succeeding episode of SVT, patient became more uncomfortable, and became diaphoretic. At this point he was started on amiodarone bolus of 150 mg, followed by standard continuous infusion. While getting the amiodarone bolus, he converted to a stable normal sinus rhythm, and reports feeling significantly better. Allergies Allergy/AdvReac Type Severity Reaction Status Date / Time No Known Allergies Allergy Unknown Verified 03/19/21 00:21 Home Medications Medication Instructions Recorded Confirmed Type alprazolam 0.5 mg tablet 0.5 mg PO DAILY PRN 03/19/21 03/19/21 History Past Med/Surg History Medical History (Updated 03/19/21 @ 03:33 by Roman Catherine MD) Anxiety Supraventricular tachycardia Social History Smoking Status: Never smoker Hx Alcohol Use: No Hx Substance Use: No Preferred Language: [place]ian Communication Ability: Effective Beliefs That Will Affect Care: None Current Living Situation: Family Feels Safe at Home: Yes Review of Systems Review of Systems: The patient denies cough, lower extremity swelling, sore throat, fevers, chills, sweats, nausea, vomiting, diarrhea , constipation, abdominal pain, pelvic pain, blood in urine or stool, dysuria, urinary frequency or urgency, headache, memory loss, loss of consciousness, rash, abnormal bruising or bleeding, imbalance, focal weakness, numbness or tingling in arms or legs, generalized arthralgias or myalgias, back or neck pain, or night sweats. The review of systems is otherwise negative other than for that already noted above, and at least 10 systems have been reviewed. Physical Exam Physical Exam: The patient is awake, alert and oriented 3, well developed and well nourished, normocephalic and atraumatic, lying in bed and in no acute distress. HEENT--PERRL, EOMI, mucous membranes and oropharynx dry. Neck--supple. No JVD. No bruits. Thyroid normal, trachea midline, no adenopathy. Heart--variable exam. Intermittent tachycardia, irregularly irregular rhythm, ectopy, normal sinus rhythm. No murmurs, rubs or gallops. Lungs--clear bilaterally, no respiratory distress, no accessory muscle use. Abdomen--normal bowel sounds and soft. Nontender. Nondistended, no hernias or masses, no organomegaly. Extremities--no cyanosis or clubbing. No edema. Dermatologic--normal skin turgor, normal color, no abnormal lymph nodes, no rash. Neurologic--cranial nerves II through XII grossly intact. Rheumatologic--normal range of motion. Psychiatric--normal affect. Results & Data Results & Data ([facility]) Vital Signs (Past 12 Hours) Vital Signs Temp Pulse Pulse Resp BP BP Pulse Ox 03/19/21 00:53 98 H 129/75 03/19/21 00:44 88 16 129/75 98 03/19/21 00:38 178 H 03/19/21 00:30 105 H 15 142/75 H 97 03/19/21 00:01 95 H 17 96 03/18/21 23:35 124 H 126/78 03/18/21 23:31 118 H 18 126/78 98 03/18/21 23:13 94 H 130/76 03/18/21 23:06 98 03/18/21 22:42 97.9 F 100 H 20 138/82 97 Laboratory Results Laboratory Results WBC 8.30 K/uL (4.8-10.8) 03/18/21 23:00 RBC 4.65 M/uL (4.7-6.1) L 03/18/21 23:00 Hgb 14.9 g/dL (14.0-18.0) 03/18/21 23:00 Hct 43.6 % (42-52) 03/18/21 23:00 MCV 93.8 fL (80-100) 03/18/21 23:00 MCH 32.0 pg (25-34) 03/18/21 23:00 MCHC 34.2 g/dL (32-36) 03/18/21 23:00 RDW Std Deviation 46.3 fL (36.4-46.3) 03/18/21 23:00 RDW Coeff of Martha 13.6 % (11.5-14.5) 03/18/21 23:00 Plt Count 246 K/uL (130-400) 03/18/21 23:00 MPV 10.2 fL (7.4-10.4) 03/18/21 23:00 Immature Gran % (Auto) 0.2 % 03/18/21 23:00 Neut % (Auto) 60.6 % 03/18/21 23:00 Lymph % (Auto) 25.5 % 03/18/21 23:00 [place] % (Auto) 9.2 % 03/18/21 23:00 Eos % (Auto) 4.0 % 03/18/21 23:00 Baso % (Auto) 0.5 % 03/18/21 23:00 Neut # (Auto) 5.03 K/uL (1.4-6.5) 03/18/21 23:00 Lymph # (Auto) 2.12 K/uL (1.2-3.4) 03/18/21 23:00 [place] # (Auto) 0.76 K/uL (0.11-0.59) H 03/18/21 23:00 Eos # (Auto) 0.33 K/uL (0-0.5) 03/18/21 23:00 Baso # (Auto) 0.04 K/uL (0-0.2) 03/18/21 23:00 Immature Gran # (Auto) 0.02 K/uL (0.00-0.02) 03/18/21 23:00 PT 9.8 Seconds (9.0-12.0) 03/18/21 23:00 INR 1.0 (0.9-1.1) 03/18/21 23:00 APTT 26.8 Seconds (21.0-31.0) 03/18/21 23:00 PTT Ratio 1.0 03/18/21 23:00 Sodium 143 mmol/L (136-145) 03/18/21 23:00 Potassium 3.8 mmol/L (3.5-5.1) 03/18/21 23:00 Chloride 110 mmol/L (98-107) H 03/18/21 23:00 Carbon Dioxide 27 mmol/L (21-32) 03/18/21 23:00 Anion Gap 6.0 (3-11) 03/18/21 23:00 BUN 28 mg/dl (7-18) H 03/18/21 23:00 Creatinine 1.20 mg/dl (0.6-1.4) 03/18/21 23:00 Est Cr Clr Drug Dosing 79.2 ml/min 03/18/21 23:00 Est GFR ( Amer) 75.7 ml/min 03/18/21 23:00 Est GFR (Non-Af Amer) 65.3 ml/min 03/18/21 23:00 BUN/Creatinine Ratio 22.9 (10-20) H 03/18/21 23:00 Glucose 91 mg/dl (70-99) 03/18/21 23:00 Calcium 9.0 mg/dl (8.5-10.1) 03/18/21 23:00 Magnesium 2.0 mg/dl (1.8-2.4) 03/18/21 23:00 Total Bilirubin 0.3 mg/dl (0.2-1) 03/18/21 23:00 AST 20 U/L (15-37) 03/18/21 23:00 ALT 30 U/L (12-78) 03/18/21 23:00 Alkaline Phosphatase 96 U/L (45-117) 03/18/21 23:00 Troponin I < 0.015 ng/ml (0-0.045) 03/18/21 23:00 Total Protein 7.3 gm/dl (6.4-8.2) 03/18/21 23:00 Albumin 3.6 gm/dl (3.4-5.0) 03/18/21 23:00 Globulin 3.7 gm/dl (2.5-4.0) 03/18/21 23:00 Albumin/Globulin Ratio 1.0 (0.9-2) 03/18/21 23:00 TSH 3.280 uIu/ml (0.300-4.500) 03/18/21 23:00 COVID-19 Eval Order Covid19 at [facility] 03/19/21 00:17 SARS-CoV-2 (PCR) NEGATIVE (Negative) 03/19/21 00:17 Code Status & VTE Plan Code Status Full code VTE Prophylaxis Plan VTE Prophylaxis will be ordered: Yes PG Care Time/CCT Total # of Minutes Spent Total Time Spent with Patient: Total time spent is greater than 50% in coordination of care (as documented) at patient's floor/unit and/or counseling patient: Coding Level of Care Code 85186 Initial Inpt Care Lvl 3 Diagnoses SVT (supraventricular tachycardia) I47.1 Palpitations R00.2 Atrial fibrillation I48.0 Atrial fibrillation type: paroxysmal Chest pressure R07.89 Anxiety F41.9 (1) Atrial fibrillation Atrial fibrillation type: paroxysmal Qualified Code(s): I48.0 - Paroxysmal atrial fibrillation
[2021-03-19] MEDS: NSS + 20MEQ KCL 20 MEQ/1,000 ML BAG IV SCH ×3 (01:41→22:59)
[2021-03-19] MEDS ORDERED: STAT IV Infusion **Titration per Protocol STA (01:53)
[2021-03-19] MEDS ORDERED: AMIODARONE IV BOLUS & DRIP IV STA (01:53)
[2021-03-19] MEDS ORDERED: AMIODARONE / D5W 150 MG/100 ML BAG IV STA (01:53)
[2021-03-19] MEDS ORDERED: 0.2 MICRON FILTER SET 1 EA IV ONE (01:53)
[2021-03-19] MEDS ORDERED: AMIODARONE 150MG / 100ML D5W IV ONE (01:55)
[2021-03-19] MEDS ORDERED: AMIODARONE / D5W 360 MG/200 ML BAG IV ONE (02:03)
[2021-03-19] MEDS ORDERED: ACETAMINOPHEN 325 MG TAB PO PRN (02:56)
[2021-03-19] MEDS ORDERED: ONDANSETRON INJ 2 MG/ML 2 ML VIAL IV PRN (02:56)
[2021-03-19] MEDS ORDERED: ALPRAZolam 0.5 MG TABLET PO PRN (02:56)
[2021-03-19] MEDS ORDERED: NSS + 20MEQ KCL 20 MEQ/1,000 ML BAG IV SCH (02:56)
[2021-03-19 07:47] LABS: Partial Thromboplastin Ratio 1.4; Partial Thromboplastin Time 36.7 Seconds (21.0-31.0)
--- NOTE | 2021-03-19 08:05 | XRay Report ---
XR chest 1V portable CLINICAL HISTORY: Atypical chest pain TECHNIQUE: Single frontal radiograph of the chest was obtained. Comparison: None available at the time of this dictation. FINDINGS: No lines and tubes are seen. The cardiomediastinal silhouette is normal. An azygos fissure is inciden tally noted. No evidence of pleural effusion or pneumothorax. IMPRESSION: No acute chest disease. ACT 112: Negative or not required by law. Electronically signed by: Willi Curtis M.D. 03/19/2021 8:03 AM
[2021-03-19 08:08] LABS: BUN Creatinine Ratio 22.2 (10-20); Blood Urea Nitrogen 21 mg/dl (7-18); Calcium 8.4 mg/dl (8.5-10.1); Carbon Dioxide 24 mmol/L (21-32); Chloride 114 mmol/L (98-107); Est GFR (African American) 97.9 ml/min; Est GFR (Non-African American) 84.5 ml/min; Glucose 101 mg/dl (70-99); Magnesium 2.1 mg/dl (1.8-2.4); Potassium 4.5 mmol/L (3.5-5.1); Sodium 143 mmol/L (136-145)
[2021-03-19] MEDS: ASPIRIN 81 MG ECTAB PO SCH (08:11)
[2021-03-19 08:12] LABS: Troponin I < 0.015 ng/ml (0-0.045)
[2021-03-19] MEDS ORDERED: AMIODARONE / D5W 360 MG/200 ML BAG IV SCH (08:30)
[2021-03-19] MEDS ORDERED: METOPROLOL TARTRATE 25 MG TAB PO SCH (09:00)
[2021-03-19] MEDS ORDERED: HEPARIN SOD (PORCINE) 1000 UNIT/ML IV ONE (09:30)
--- NOTE | 2021-03-19 11:28 | Cardiology Consultation ---
Date of Consultation March 19, 2021 Assessment & Plan (1) SVT (supraventricular tachycardia): (2) Palpitations: (3) Anxiety: He is having prolonged runs of SVT along with very frequent atrial ectopy as well. I do not see any component of atrial fibrillation so I will discontinue his hepa rin and IV amiodarone at this time. I will start him on low-dose beta-real with metoprolol tartrate 12.5 mg p.o. every 6 hours but ultimately I believe repeat ablation will be necessary. Given his complex electrophysiology history I believe he would benefit from the procedure being done at a tertiary care facility and I have asked Dr. Hadley to try and arrange transfer to [facility] based on his insurance coverage. The patient is in agreement with the above plan. He is also slightly prerenal and I will give him IV fluids at this time. Continue to monitor on telemetry while admitted here. History of Present Illness Reason for Consultation: SVT Requesting Physician: Dr. Almodovar Attending Physician: Nitin Hadley History of Present Illness It was my pleasure to see Yosef in cardiac consultation today March 19, 2021. He is a very pleasant 60-year-old gentleman who routinely follows with Dr. Hoffman of our cardiology practice. He presented to [facility] emergency department on 03/18/2021 with complaints of palpitations. He is noted worsening palpitations for the last 3 months. He states at times it feels like his normal ectopy but then there are also prolonged runs. During that time the palpitations gradually increased in frequency to the point last evening where he was unable to go to sleep due to prolonged episodes of p alpitations. Upon arrival to the emergency department he was found to be in SVT and I recommended admission with the addition of beta-blockers. He was initially thought to be in atrial fibrillation as well but personally reviewed the telemetry he is always maintained a sinus mechanism apart from his SVT but very frequent atrial ectopy. Currently states he still feels his heart racing at rest but denies any other complaints. States his been compliant with his medications as an outpatient. Problem List: 1. 1 millimeter mobile linear echodensity noted on the atrial aspect of the anterior mitral valve leaflet consistent with ruptured cord on transesophageal echocardiogram in July,, with mild mitral regurgitation and mild posterior mitral valve prolapse. Stable findings per echo 07/2019. 2. History of paroxysmal supraventricular tachycardia with no recurrence since radiofrequency catheter ablation of a concealed left-sided bypass tract, May 2015 3. Palpitations, described as skipped beats at night. Likely symptomatic PVC's 4. 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 History of elevated transaminases 6. Dyslipidemia - borderline, declines therapy Allergies Allergy/AdvReac Type Severity Reaction Status Date / Time No Known Allergies Allergy Unknown Verified 03/19/21 00:21 Home Medications Medication Instructions Recorded Confirmed Type alprazolam 0.5 mg tablet 0.5 mg PO DAILY PRN 03/19/21 03/19/21 History Patient History Medical History Anxiety Supraventricular tachycardia Social History Smoking Status: Never smoker Hx Alcohol Use: No Hx Substance Use: No Preferred Language: South Korean Communication Ability: Effective Beliefs That Will Affect Care: None Current Living Situation: Family Feels Safe at Home: Yes Assistive Devices: Glasses Review of Systems Review of Systems: All systems reviewed & are unremarkable except as noted in HPI & below Results & Data ([facility]) Vital Signs (Past 12 Hours) Vital Signs Temp Pulse Pulse Resp BP BP BP 03/19/21 11:16 36.3 C L 61 20 106/69 03/19/21 09:18 88 03/19/21 08:04 36.4 C L 57 L 19 117/77 03/19/21 04:19 78 03/19/21 03:32 36.8 C 16 94/65 L 03/19/21 02:16 69 93/66 L 03/19/21 02:00 170 H 13 93/66 L 03/19/21 01:30 161 H 20 03/19/21 01:00 102 H 16 122/86 03/19/21 00:53 98 H 129/75 03/19/21 00:44 88 16 129/75 03/19/21 00:38 178 H 03/19/21 00:30 105 H 15 142/75 H 03/19/21 00:01 95 H 17 03/18/21 23:35 124 H 126/78 03/18/21 23:31 118 H 18 126/78 Pulse Ox 03/19/21 11:16 97 03/19/21 09:18 03/19/21 08:04 99 03/19/21 04:19 03/19/21 03:32 97 03/19/21 02:16 98 03/19/21 02:00 89 L 03/19/21 01:30 97 03/19/21 01:00 97 03/19/21 00:53 03/19/21 00:44 98 03/19/21 00:38 03/19/21 00:30 97 03/19/21 00:01 96 03/18/21 23:35 03/18/21 23:31 98
[2021-03-19] MEDS ORDERED: SODIUM CHLORIDE 0.9% 1000ML 1,000 ML IV SCH (14:00)
[2021-03-19 16:41] LABS: Partial Thromboplastin Ratio 1.5; Partial Thromboplastin Time 40.6 Seconds (21.0-31.0)
[2021-03-19] MEDS: METOPROLOL TARTRATE 25 MG TAB PO SCH (18:14)
--- NOTE | 2021-03-19 21:34 | Hospitalist Progress Note ---
Date of Service March 19, 2021 Assessment & Plan (1) SVT (supraventricular tachycardia): Plan: s/p ablation procedure for left-sided bypass tract by Dr Moreau in 2016. discovered to have 2 tracts during EP study with only 1 successfully ablated. no issues with SVT since 2016 until recently. telemetry since arrival at [facility] yesterday c/w SVT and copious atrial ectopy. NO a.fib. Thus, d/c amiodarone and heparin per cardiology. Cont metoprolol orally. Again - I contacted [facility], spoke with Dr Tucker Cadena (cardiology) - patient accepted in transfer for possible ablation procedure. Continue telemetry. BMP in am. Appreciate Cardiology assistance. 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: Plan: MRI brain from 2016 admission showed tiny cardioembolic infarcts He reports mild memory issues as a result of these strokes in 2016 no motor symptoms (6) Mitral valve prolapse: Plan: as noted on echo Plan: cont gentle hydration today can d/c tonight patient updated with plan of care, acceptance at [facility], and simply waiting for bed to open discharge paperwork completed discharge process in [facility] completed copy of 2016 EP study/ablation report placed in transfer packet echo placed on disc to carry to [facility] total time today - 70 min; complex care coordination, call to [place], discussion with cardiology, discussion with patient, d/c prep work, etc Admission and Anticipated Discharge Date Admission Date: March 19, 2021 Subjective after cardiology saw patient in consult they advised transfer to tertiary care patient stated that his insurance would require transfer to [facility] called [facility] - spoke with Dr Tucker Cadena, cardiology - he graciously accepted Mr Nails in transfer when bed was available speaking with Dr Mohamud he stated that transfer was necessary because of difficulties encountered during 2016 ablation at [facility] there appeared to be 2 left-sided bypass tracts with only 1 successfully ablated at that time tele overnight - NUMEROUS runs of SVT, numerous PACs, no a.fib patient feeling better - less palpitations, less dizziness and feeling poorly he recounts that he has had SVT episodes x 3 months - sometimes he would perform valsalva maneuvers 10+ times each day to break episodes Review of Systems Review of Systems: gen - fatigued CV - no chest pain; palpitations improved pulm - no dyspnea GI - no N/V/pain Physical Exam Physical Exam: gen - NAD, tired-appearing neck - no JVD mouth - MMM heart - irregular (extra beats), s1 s2, no murmur lungs - CTA b/l abd - soft, NT, ND, BS+ ext - trace edema, pulses 2+ b/l psych - a/o x 3 Results & Data Results & Data ([facility]) Vital Signs (Past 12 Hours) Vital Signs Temp Pulse Resp BP Pulse Ox 03/19/21 19:10 36.6 C 62 20 92/51 L 94 03/19/21 14:57 36.6 C 63 20 97/61 L 98 03/19/21 11:16 36.3 C L 61 20 106/69 97 Laboratory Results Laboratory Results - last 24 hr 03/18/21 03/18/21 03/18/21 23:00 23:00 23:00 WBC 8.30 RBC 4.65 L Hgb 14.9 Hct 43.6 MCV 93.8 MCH 32.0 MCHC 34.2 RDW Std Deviation 46.3 RDW Coeff of Martha 13.6 Plt Count 246 MPV 10.2 Immature Gran % (Auto) 0.2 Neut % (Auto) 60.6 Lymph % (Auto) 25.5 [place] % (Auto) 9.2 Eos % (Auto) 4.0 Baso % (Auto) 0.5 Neut # (Auto) 5.03 Lymph # (Auto) 2.12 [place] # (Auto) 0.76 H Eos # (Auto) 0.33 Baso # (Auto) 0.04 Immature Gran # (Auto) 0.02 PT 9.8 INR 1.0 APTT 26.8 PTT Ratio 1.0 Sodium 143 Potassium 3.8 Chloride 110 H Carbon Dioxide 27 Anion Gap 6.0 BUN 28 H Creatinine 1.20 Est Cr Clr Drug Dosing 79.2 Est GFR ( Amer) 75.7 Est GFR (Non-Af Amer) 65.3 BUN/Creatinine Ratio 22.9 H Glucose 91 Calcium 9.0 Magnesium 2.0 Total Bilirubin 0.3 AST 20 ALT 30 Alkaline Phosphatase 96 Troponin I < 0.015 Total Protein 7.3 Albumin 3.6 Globulin 3.7 Albumin/Globulin Ratio 1.0 TSH 3.280 COVID-19 Eval Order SARS-CoV-2 (PCR) 03/19/21 03/19/21 03/19/21 00:17 00:17 07:10 WBC RBC Hgb Hct MCV MCH MCHC RDW Std Deviation RDW Coeff of Martha Plt Count MPV Immature Gran % (Auto) Neut % (Auto) Lymph % (Auto) [place] % (Auto) Eos % (Auto) Baso % (Auto) Neut # (Auto) Lymph # (Auto) [place] # (Auto) Eos # (Auto) Baso # (Auto) Immature Gran # (Auto) PT INR APTT PTT Ratio Sodium 143 Potassium 4.5 D Chloride 114 H Carbon Dioxide 24 Anion Gap 5.0 BUN 21 H Creatinine 0.97 Est Cr Clr Drug Dosing 98.0 Est GFR ( Amer) 97.9 Est GFR (Non-Af Amer) 84.5 BUN/Creatinine Ratio 22.2 H Glucose 101 H Calcium 8.4 L Magnesium 2.1 Total Bilirubin AST ALT Alkaline Phosphatase Troponin I < 0.015 Total Protein Albumin Globulin Albumin/Globulin Ratio TSH COVID-19 Eval Order Covid19 at [facility] SARS-CoV-2 (PCR) NEGATIVE 03/19/21 03/19/21 07:10 16:16 WBC RBC Hgb Hct MCV MCH MCHC RDW Std Deviation RDW Coeff of Martha Plt Count MPV Immature Gran % (Auto) Neut % (Auto) Lymph % (Auto) [place] % (Auto) Eos % (Auto) Baso % (Auto) Neut # (Auto) Lymph # (Auto) [place] # (Auto) Eos # (Auto) Baso # (Auto) Immature Gran # (Auto) PT INR APTT 36.7 H 40.6 H PTT Ratio 1.4 1.5 Sodium Potassium Chloride Carbon Dioxide Anion Gap BUN Creatinine Est Cr Clr Drug Dosing Est GFR ( Amer) Est GFR (Non-Af Amer) BUN/Creatinine Ratio Glucose Calcium Magnesium Total Bilirubin AST ALT Alkaline Phosphatase Troponin I Total Protein Albumin Globulin Albumin/Globulin Ratio TSH COVID-19 Eval Order SARS-CoV-2 (PCR) PG Care Time/CCT Total # of Minutes Spent Total Time Spent with Patient: Total time spent is greater than 50% in coordination of care (as documented) at patient's floor/unit and/or counseling patient: Prolonged Care Time Prolonged Care Time: Yes 70 minutes Coding Level of Care Code 55355 Subseq Hosp Care Lvl 3 (25 - SIGNIFICANT, SEPARATELY IDENTIFIABLE ) Diagnoses SVT (supraventricular tachycardia) I47.1 Palpitations R00.2 Chest pressure R07.89 Anxiety F41.9 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
[2021-03-20] MEDS: METOPROLOL TARTRATE 25 MG TAB PO SCH ×3 (00:13→12:40)
--- NOTE | 2021-03-20 05:50 | Electrocardiogram Report ---
Test Reason : Blood Pressure : / mmHG Vent. Rate : 101 BPM Atrial Rate : 144 BPM P-R Int : 000 ms QRS Dur : 082 ms QT Int : 350 ms P-R-T Axes : 000 011 026 degrees QTc Int : 453 ms Sinus rhythm with frequent Premature supraventricular complexes Abnormal ECG When compared with ECG of 18-NOV-2015 06:16, Premature supraventricular complexes are now Present Confirmed by Saurabh East ([id number]) on 03/20/2021 5:49:33 AM Referred By: REFERRED SELF Confirmed By:Sauarbh East
--- NOTE | 2021-03-20 05:53 | Electrocardiogram Report ---
Test Reason : Blood Pressure : / mmHG Vent. Rate : 165 BPM Atrial Rate : 096 BPM P-R Int : 000 ms QRS Dur : 088 ms QT Int : 280 ms P-R-T Axes : 000 008 076 degrees QTc Int : 463 ms Supraventricular tachycardia Nonspecific ST abnormality Abnormal ECG When compared with ECG of 18-MAR-2021 22:51, Supraventricular tachycardia has replaced Sinus rhythm Vent. rate has increased BY [address] now depressed in Lateral leads Confirmed by Saurabh East ([id number]) on 03/20/2021 5:53:46 AM Referred By: REFERRED SELF Confirmed By:Saurabh East
--- NOTE | 2021-03-20 06:02 | Electrocardiogram Report ---
Test Reason : Blood Pressure : / mmHG Vent. Rate : 068 BPM Atrial Rate : 068 BPM P-R Int : 124 ms QRS Dur : 084 ms QT Int : 406 ms P-R-T Axes : 034 027 034 degrees QTc Int : 431 ms Sinus rhythm with Premature supraventricular complexes Otherwise normal ECG When compared with ECG of 19-MAR-2021 00:37, Premature supraventricular complexes are now Present Vent. rate has decreased BY [address] no longer depressed in Anterolateral leads Sinus rhythm has replaced Supraventricular tachycardia Confirmed by Saurabh East ([id number]) on 03/20/2021 6:01:43 AM Referred By: REFERRED SELF Confirmed By:Saurabh East
[2021-03-20 07:20] LABS: BUN Creatinine Ratio 14.8 (10-20); Calcium 8.6 mg/dl (8.5-10.1); Creatinine Clr Calc Pharmacy 92.1 ml/min; Est GFR (African American) 91.1 ml/min; Est GFR (Non-African American) 78.6 ml/min
[2021-03-20] MEDS: ASPIRIN 81 MG ECTAB PO SCH (08:48)
--- NOTE | 2021-03-20 13:32 | Hospitalist Progress Note ---
Date of Service March 20, 2021 Assessment & Plan (1) SVT (supraventricular tachycardia): Plan: S/p ablation procedure for left-sided bypass tract by Dr Moreau in 2016. Discovered to have 2 tracts during EP study with only 1 successfully ablated. - No issues with SVT since 2016 until recently. NO a.fib. Thus, d/c amiodarone and heparin per cardiology. - Cont metoprolol 12.5 mg PO Q6h. Accepted by Dr. Tucker Cadena (cardiology) - patient accepted in transfer for possible ablation procedure. -> Will discuss with [facility] cardiology today. (2) Palpitations: Plan: 2nd to #1 above - TTE on 03/19/2021 with EF 60 - 65%, no segmental wall abnormalities, mild aortic sclerosis, and mild MVP with mild regurg. (3) Chest pressure: Plan: Troponins negative. Chest symptoms 2nd to #1. 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 He reports mild memory issues as a result of these strokes in 2016. No motor symptoms. - Stable. (6) Mitral valve prolapse: Plan: as noted on echo Admission and Anticipated Discharge Date Admission Date: March 19, 2021 Subjective Doing well today. Hoping that he can go home, but understands possibility of having to go to [place] for ablation while still inpatient. Reports no fevers/chills, chest pain, shortness of breath, abdominal pain, nausea, or vomiting. Physical Exam Constitutional: WD/WN, vitals as above Eyes: EOM intact bilaterally; no conjunctival abnormality ENMT: external ear and nose normal, oropharynx normal Neck: trachea midline, no thyromegaly normal visual inspection Respiratory: normal respiratory effort, lungs clear to auscultation no respiratory distress Cardiovascular: RRR, no murmur, no edema Gastrointestinal (Abdomen): Inspection/Auscultation: abdomen normal to inspection; abdomen not distended Musculoskeletal: no cyanosis or clubbing, extremities motor strength 5/5 Skin: no rashes, warm and dry Neurologic: moves all extremities and awake Psychiatric: Orientation: alert, oriented to person and cooperative Results & Data Results & Data ([facility]) Vital Signs (Past 12 Hours) Vital Signs Temp Pulse Pulse Resp BP Pulse Ox 10/25/21 11:04 37.1 C 68 19 113/71 95 03/20/21 07:19 36.5 C 60 18 108/64 93 03/20/21 04:18 63 03/20/21 04:17 36.8 C 60 16 102/64 96 PG Care Time/CCT Total # of Minutes Spent Total Time Spent with Patient: Total time spent is greater than 50% in coordination of care (as documented) at patient's floor/unit and/or counseling patient: Coding Level of Care Code 92542 Subseq Hosp Care Lvl 2 Diagnoses SVT (supraventricular tachycardia) I47.1 Palpitations R00.2 Chest pressure R07.89 Anxiety F41.9 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
--- NOTE | 2021-03-20 15:42 | Discharge Summary ---
Date of Service March 20, 2021 Admission HPI Per Admitting Provider The patient is a 60-year-old male with a past medical history including SVT status post ablation, atrial fibrillation, and anxiety. He presents to the emergency department with complaint of palpitations over the past few weeks, with increased heart rate over the past 4 hours prior to arrival. While in the emergency department, he had several episodes of SVT into the 170s and 180s, that did briefly respond to Lopressor 5 mg IV x4, IV fluid resuscitation, and oral potassium replacement. With the succeeding episode of SVT, patient became more uncomfortable, and became diaphoretic. At this point he was started on amiodarone bolus of 150 mg, followed by standard continuous infusion. While getting the amiodarone bolus, he converted to a stable normal sinus rhythm, and reports feeling significantly better. Principal Diagnosis SVT Discharge Exam Constitutional WD/WN, vitals as above Eyes EOM intact bilaterally; no conjunctival abnormality ENMT external ear and nose normal, oropharynx normal Neck trachea midline, no thyromegaly normal visual inspection Respiratory normal respiratory effort, lungs clear to auscultation no respiratory distress Cardiovascular RRR, no murmur, no edema Gastrointestinal (Abdomen) Inspection/Auscultation: abdomen normal to inspection; abdomen not distended Musculoskeletal no cyanosis or clubbing, extremities motor strength 5/5 Skin no rashes, warm and dry Neurologic moves all extremities and awake Psychiatric Orientation: alert, oriented to person and cooperative Discharge Data Allergies Allergy/AdvReac Type Severity Reaction Status Date / Time No Known Allergies Allergy Unknown Verified 03/19/21 00:21 Consultations 03/19/21 00:00 ED Decision to Admit Stat 03/19/21 02:56 Consult Cardiology Routine Hospital Course (1) SVT (supraventricular tachycardia): S/p ablation procedure for left-sided bypass tract by Dr Moreau in 2016. Discovered to have 2 tracts during EP study with only 1 successfully ablated. - No issues with SVT since 2016 until recently. NO a.fib. Thus, d/c amiodarone and heparin per cardiology. - Cont metoprolol 12.5 mg PO Q6h. Accepted by Dr. Tucker Cadena (cardiology) - patient accepted in transfer for possible ablation procedure. -> Discussed with [facility] cardiology today as well as [facility] clothing designer geothermal operations engineer (Dr. Jaleel Cortez). Since his SVT has settled down with metoprolol, urgency of transfer is reduced. He was still on waitlist for transfer with no timeline. Discussed with patient and , and he prefers discharge with o/p follow up. No further episodes of SVT in last 36 hours. - Discharge on metoprolol XL 50 mg PO daily (equivalent dosing for current regimen) - Outpatient follow-up. If he has more episodes of SVT, we discussed that he should return to the ER (or consider driving to [facility] if he is stable). (2) Palpitations: 2nd to #1 above - TTE on 03/19/2021 with EF 60 - 65%, no segmental wall abnormalities, mild aortic sclerosis, and mild MVP with mild regurg. (3) Chest pressure: Troponins negative. Chest symptoms 2nd to #1. 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 He reports mild memory issues as a result of these strokes in 2016. No motor symptoms. - Stable. (6) Mitral valve prolapse: as noted on echo Total Time Total Time Spent Total Time Spent (In Minutes): 35 Discharge Plan Discharge Items Patient Disposition: Home - Self-Care Reason For Visit: SVT Discharge Diagnosis: 1. Recurrent symptomatic SVT 2. H/O SVT ablation - 2016 at [facility] Activity: Resume your previous activity Non-emergency contact: Primary Care Provider and [employer] Call non-emergency contact if: you have any medication questions and your symptoms worsen Follow-up/Referrals: Ko Rodriguez MD [Primary Care Provider] - Diet: Heart Healthy Addtl Attending Provider Instructions: Mr. Nails, You were admitted with a tachycardia that is due to the upper half of your heart sending too many impulses. We were able to calm this down with metoprolol. Take a short-acting metoprolol 12.5 mg before bedtime tonight, then start your long-acting metoprolol (succinate) tomorrow morning and then daily thereafter. You will have to see a [facility] clothing designer to consider repeat ablation if this cannot be controlled with medication. If you haven't heard from [facility] in 2-3 days, please call at [phone]. Dr. Tucker Cadena was the clothing designer that accepted you on transfer; however, he is not an senior interactive producer, so you will likely need to see someone different in the office to plan and discuss the ablation. If you have recurrent episodes of SVT that you are having trouble controlling, you should seek medical attention either here or at [facility]. Pending Studies at Discharge: No Stand-Alone Forms: My [facility], Work/School Release, Smoking Cessation Medications and DC Order Prescriptions: New metoprolol succinate 50 mg tablet extended release 24 hr 50 mg PO DAILY Qty: 30 RF: 1 Continued alprazolam 0.5 mg tablet 0.5 mg PO DAILY PRN (Reason: Anxiety) RF: 0 Discharge Orders: Discharge Order (Routine); Ordered 03/20/21 Ordered By: Claus Briseno Admission Data Admit Date/Time: 03/19/21 01:33 Attending Provider: Claus Briseno Admit Provider: Roman Catherine Primary Care Provider: Ko Rodriguez Other Providers: Fabian Milton ; Claus Briseno Coding Level of Care Code D/C DAY MANAGEMENT >30 MINS Diagnoses SVT (supraventricular tachycardia) I47.1 Palpitations R00.2 Chest pressure R07.89 Anxiety F41.9 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
--- NOTE | 2021-03-21 04:39 | Electrocardiogram Report ---
Test Reason : Blood Pressure : / mmHG Vent. Rate : 079 BPM Atrial Rate : 075 BPM P-R Int : 000 ms QRS Dur : 080 ms QT Int : 410 ms P-R-T Axes : 000 021 016 degrees QTc Int : 470 ms Sinus rhythm with sinus arrhythmia and frequent PACs Abnormal ECG When compared with ECG of No significant change Confirmed by Saurabh East ([id number]) on 03/21/2021 4:39:36 AM Referred By: REFERRED SELF Confirmed By:Saurabh East
--- NOTE | 2021-03-21 05:05 | Electrocardiogram Report ---
Test Reason : Blood Pressure : / mmHG Vent. Rate : 084 BPM Atrial Rate : 084 BPM P-R Int : 128 ms QRS Dur : 080 ms QT Int : 428 ms P-R-T Axes : 086 019 012 degrees QTc Int : 505 ms Sinus rhythm with atrial runs (atrial tachycardia) Prolonged QT Abnormal ECG When compared with ECG of 19-MAR-2021 10:33, No significant change Confirmed by Saurabh East ([id number]) on 03/21/2021 5:04:53 AM Referred By: REFERRED SELF Confirmed By:Saurabh East
== END 2021-03-20 16:10 | disposition home or self-care (01) | DRG 310 ==
LOC: ED 22:41 → SUATTDRO 03-19 01:33 → 2S 03-19 01:33